=== PATIENT | male | born 1985 ===

== ENCOUNTER 2016-10-27 15:17 | Inpatient (IN) | payer MEDICAID, OTHER ==
[2016-10-27 15:24] VITALS: BMI 35.4
[2016-10-27] MEDS ORDERED: Sodium Chloride 0.9% 2,000 ML IV STA ×3 (15:40→17:56)
[2016-10-27 16:11] LABS: BASO # 0.03 K/mm3 (0.0-2.0); BASO % 0.3 % (0.0-3.0); EOS # 0.2 (0.0-0.7); EOS % 2.5 % (1.5-5.0); GRAN # 5.73 (1.4-6.5); GRAN % 64.3 % (50.0-68.0); HEMOGLOBIN 16.1 gm/dL (14.0-18.0); LYMPH # 2.4 (1.2-3.4); LYMPH % 26.5 % (22.0-35.0); MEAN CELL VOLUME 82.2 fL (80.0-105.0); MEAN CORPUSCULAR HGB CONC 35.2 g/dl (31.0-37.0); MEAN PLATELET VOLUME 11.6 fl (7.0-11.0); MONO # 0.6 (0.1-0.6); MONO % 6.4 % (1.0-6.0); PLATELET COUNT 227 10^3/uL (120.0-450.0); RBC 5.56 10^6/uL (3.5-6.1); WHITE BLOOD COUNT 8.9 10^3/ul (4.5-11.0)
[2016-10-27 16:15] LABS: VENOUS BLOOD GAS BASE EXCESS -3.1 mmol/L (0.0-2.0); VENOUS BLOOD GAS PO2 50 mm/Hg (30-55); VENOUS BLOOD PH 7.32 (7.32-7.43)
--- NOTE | 2016-10-27 16:19 | ED PDOC ---
Arrival/HPI - General Chief Complaint: Dizziness/Lightheaded Time Seen by Provider: 10/27/16 15:39 - History of Present Illness Narrative History of Present Illness (Text): 10/27/16 16:15 31-year-old male, denies any past medical history, presents emergency Department with 3-4 days duration worsening lightheadedness, blurry vision, dry mouth. Patient denies any abdominal pain, denies any nausea or vomiting. Patient states that he is currently being treated with oral antibiotics for diverticulitis, which he states has been resolving. Past Medical History - Provider Review Nursing Documentation Reviewed: Yes - Cardiac Hx Cardiac Disorders: No - Pulmonary Hx Respiratory Disorders: No - Neurological Hx Neurological Disorder: No - HEENT Hx HEENT Disorder: No - Renal Hx Renal Disorder: No - Endocrine/Metabolic Hx Endocrine Disorders: No - Hematological/Oncological Hx Blood Disorders: No - Integumentary Hx Dermatological Disorder: No - Musculoskeletal/Rheumatological Hx Musculoskeletal Disorders: No - Gastrointestinal Hx Diverticulitis: Yes - Genitourinary/Gynecological Hx Genitourinary Disorders: No - Psychiatric Hx Psychophysiologic Disorder: No Hx Substance Use: No - Anesthesia Hx Anesthesia: No Family/Social History Family/Social History: Diabetes Smoking Status: Former Smoker Hx Alcohol Use: No Hx Substance Use: No Allergies/Home Meds Allergies/Adverse Reactions: Allergies No Known Allergies Allergy (Verified 10/27/16 15:23) Home Medications: Home Meds Medication Instructions Recorded Confirmed Ciprofloxacin [Cipro] 500 mg PO DAILY 10/27/16 10/27/16 Physical Exam - Physical Exam Narrative Physical Exam (Text): 10/27/16 16:19 - Review of Systems Constitutional: absent: Fatigue, Weight Change, Fevers Eyes: Normal ENT: denies sore throat, denies tristhmus Respiratory: Normal. absent: SOB, Cough, Sputum Cardiovascular: absent: Chest Pain, Palpitations, Syncope Gastrointestinal: Normal. absent: Abdominal Pain, Diarrhea, Nausea, Vomiting Genitourinary: Normal. absent: Dysuria, Frequency, Hematuria, vaginal bleeding Musculoskeletal: Normal. absent: Arthralgias, Back Pain, Neck Pain Skin: no rashes, no erythema Neurological: absent: Focal Weakness Endocrine: Dry mouth, blurry vision Hemo/Lymphatic: Normal Psychiatric: No suicidal or homicidal ideations Physical exam Patient appears age appropriate in no distress, speaking full sentences without difficulty - Systems Exam Head: Present: Atraumatic, Normocephalic Pupils: Present: PERRL Extroacular Muscles: Present: EOMI Conjunctiva: Present: Normal Mouth: Present: Moist Mucous Membranes Neck: Present: Normal Range of Motion. No: MIDLINE TENDERNESS, Paraspinal Tenderness Respiratory/Chest: Present: Clear to Auscultation, Good Air Exchange. No: Respiratory Distress, Accessory Muscle Use, Tachypneic Cardiovascular: Present: Regular Rate and Rhythm, Normal S1, S2, Peripheal Pulses Present. No: Murmurs Abdomen: Present: Normal Bowel Sounds. No: Tenderness, Distention, Peritoneal Signs, Rebound, Guarding Back: Present: Normal Inspection. No: Midline Tenderness, Paraspinal Tenderness Upper Extremity: Present: Normal Inspection. No: Cyanosis, Edema Lower Extremity: Present: Normal Inspection. No: Edema Neurological: Present: GCS=15, Speech Normal, cranial nerves II through XII fully intact with no cerebellar abnormality, neurosensory fully intact. No focal neurological deficits. Skin: Present: Warm, Dry, Normal Color. No: Rashes Lymphatic: Present: OX3, NI, NC Psychiatric: Present: Alert, Oriented x 3, Normal Insight, Normal Concentration Vital Signs Reviewed: Yes Vital Signs Temp Pulse Resp BP Pulse Ox 10/27/16 16:27 89 18 127/75 98 10/27/16 15:27 98.8 F 99 H 15 129/83 98 Temperature: Afebrile Blood Pressure: Normal Pulse: Tachycardic Respiratory Rate: Normal Appearance: Positive for: Well-Appearing Pain Distress: None Mental Status: Positive for: Alert and Oriented X 3 Finger Stick Blood Glucose: 500 Medical Decision Making ED Course and Treatment: 10/27/16 16:21 31-year-old male with blurry vision, dry mouth, blood sugar over 500 in the emergency department. No acute findings on physical examination. Patient states that he is being treated for diverticulitis at this time. Patient 's abdomen is soft nontender nondistended with positive bowel sounds in all 4 quadrants and no peritoneal signs. Patient states that he has no history of diabetes. Differential diagnosis includes but not limited to: hyperglycemia versus DKA 10/27/16 17:[address] [facility] states to admin a total of 4L NS and bolus of 10U Insulin, and to admit to med/ surg Dr. Garcia in the ED, accepted pt to her service pt aware of and agrees with plan - Lab Interpretations Lab Results: 10/27/16 15:40 10/27/16 15:40 Lab Results 10/27/16 16:35: Urine Color Yellow, Urine Appearance Clear, Urine pH 6.0, Ur Specific [place] 1.010, Urine Protein Negative, Urine Glucose (UA) >=1000, Urine Ketones 40 H, Urine Blood Trace-lysed H, Urine Nitrate Negative, Urine Bilirubin Negative, Urine Urobilinogen 0.2, Ur Leukocyte Esterase Negative, Urine RBC Negative, Urine WBC 0 - 2, Ur Epithelial Cells 0 - 2, Urine Bacteria Neg 10/27/16 15:40: PT 11.3, INR 1.05, APTT 29.5 10/27/16 15:40: pO2 50, VBG pH 7.32, VBG pCO2 45.0, VBG HCO3 23.2, VBG O2 Sat ( Calc) 86.7 H, VBG Base Excess -3.1 L 10/27/16 15:40: Sodium 130 L, Potassium 4.3, Chloride 90 L, Carbon Dioxide 23, Anion Gap 21 H, BUN 17, Creatinine 1.0, Est GFR ( Amer) > 60, Est GFR ( Non-Af Amer) > 60, Random Glucose 592 H*, Calcium 9.1, Total Bilirubin 0.8, AST 39, ALT 84 H, Alkaline Phosphatase 220 H, Total Protein 8.3, Albumin 4.4, Globulin 3.9, Albumin/Globulin Ratio 1.1 10/27/16 15:40: WBC 8.9, RBC 5.56, Hgb 16.1, Hct 45.7, MCV 82.2, MCH 29.0, MCHC 35.2, RDW 13.0, Plt Count 227, MPV 11.6 H, Gran % 64.3, Lymph % (Auto) 26.5, [place] % (Auto) 6.4 H, Eos % (Auto) 2.5, Baso % (Auto) 0.3, Gran # 5.73, Lymph # 2.4, [place] # 0.6, Eos # 0.2, Baso # 0.03 - RAD Interpretation Radiology Orders: 10/27/16 15:40 CHEST PORTABLE [RAD] Stat - Medication Orders Current Medication Orders: Sodium Chloride (Sodium Chloride 0.9%) 2,000 mls @ 1,000 mls/hr IV .Q2H STA Stop: 10/27/16 17:39 Last Admin: 10/27/16 15:59 Dose: 1,000 mls/hr Sodium Chloride (Sodium Chloride 0.9%) 2,000 mls @ 1,000 mls/hr IV .Q2H STA Stop: 10/27/16 19:34 Discontinued Medications Insulin Human Regular (Humulin R) 10 units IV STAT STA Stop: 10/27/16 17:36 Disposition/Present on Arrival - Present on Arrival Any Indicators Present on Arrival: No History of DVT/PE: No History of Uncontrolled Diabetes: No Urinary Catheter: No History of Decub. Ulcer: No History Surgical Site Infection Following: None - Disposition Have Diagnosis and Disposition been Completed?: Yes Diagnosis: Hyperglycemia Disposition: HOSPITALIZED Disposition Time: 17:40 Patient Plan: Admission Condition: FAIR Forms: Dr. Scribbles ([place])
[2016-10-27 16:26] LABS: ALB/GLOB RATIO 1.1 (1.1-1.8); ALBUMIN 4.4 g/dL (3.0-4.8); ALT/SGPT 84 U/L (7-56); AST/SGOT 39 U/L (15-59); BLOOD UREA NITROGEN 17 mg/dL (7-21); CALCIUM 9.1 mg/dL (8.4-10.5); GFR AFRICAN-AMERICAN > 60; GFR NON-AFRICAN AMERICAN > 60; INR 1.05 (0.93-1.08); PARTIAL THROMBOPLASTIN TIME 29.5 Seconds (23.7-30.8); PROTHROMBIN TIME 11.3 Seconds (9.9-11.8)
[2016-10-27] MEDS ORDERED: Insulin Regular 100 UNITS in Sodium Chloride 0.9% 99 ML IV PRN (16:36)
[2016-10-27 16:47] LABS: URINE BILIRUBIN NEGATIVE (NEGATIVE); URINE BLOOD TRACE-LYSED (NEGATIVE); URINE GLUCOSE (UA) >=1000 mg/dL (NEGATIVE); URINE LEUKOCYTE ESTERASE NEGATIVE Leu/uL (NEGATIVE); URINE NITRATE NEGATIVE (NEGATIVE); URINE PROTEIN NEGATIVE mg/dL (<30 mg/dL); URINE UROBILINOGEN 0.2 E.U./dL (<1 E.U./dL)
[2016-10-27 16:54] LABS: URINE APPEARANCE CLEAR (CLEAR); URINE COLOR YELLOW (YELLOW)
[2016-10-27 16:57] LABS: URINE BACTERIA NEG (NEG); URINE EPITHELIAL CELLS 0 - 2 /hpf (0-5); URINE RBC NEGATIVE /hpf (0-2); URINE WBC 0 - 2 /hpf (0-6)
--- NOTE | 2016-10-27 17:28 | RAD ---
HISTORY: cough COMPARISON: No prior. FINDINGS: LUNGS: No active pulmonary disease. PLEURA: No significant pleural effusion identified, no pneumothorax apparent. CARDIOVASCULAR: Normal. OSSEOUS STRUCTURES: No significant abnormalities. VISUALIZED UPPER ABDOMEN: Normal. OTHER FINDINGS: None. IMPRESSION: No active disease.
[2016-10-27] MEDS ORDERED: Insulin Regular 1 UNITS/0.01 ML ML IV STA (17:35)
--- NOTE | 2016-10-27 17:56 | CP.PCM.CON ---
History of Present Illness - History of Present Illness History of Present Illness: 31 y/o M presented to the ER w/ increased thirst, urinary frequency and nausea. he also states that he has been drinking plenty of water and O.J. he has been on Cipro per his PCP for " colitis" ?? he has been dealing with colitis for 9 years and has never been worked up formaly with GI to r/o IBD. he has been having loose mucous stools in the past week which has been further dehydrating him. Review of Systems - Constitutional Constitutional: Fatigue - EENT Eyes: Blurred Vision Nose/Mouth/Throat: Dry Mouth - Cardiovascular Cardiovascular: absent: As Per HPI, Acrocyanosis, Chest Pain, Chest Pain at Rest , Chest Pain with Activity, Claudication, Diaphoresis, Dyspnea, Dyspnea on Exertion, Edema, Irregular Heart Rhythm, Pain Radiating to Arm/Neck/Jaw, Leg Edema, Leg Ulcers, Lightheadedness, Orthopnea, Palpitations, Paroxysmal Nocturnal Dyspnea, Pedal Edema, Radiating Pain, Rapid Heart Rate, Slow Heart Rate, Syncope, Other - Respiratory Respiratory: absent: As Per HPI, Cough, Dyspnea, Hemoptysis, Dyspnea on Exertion , Wheezing, Snoring, Stridor, Pain on Inspiration, Chest Congestion, Excessive Mucous Production, Change in Mucous Color, Pain with Coughing, Other - Gastrointestinal Gastrointestinal: Diarrhea - Genitourinary Genitourinary: Urinary Frequency - Integumentary Integumentary: absent: As Per HPI, Acne, Alopecia, Bleeding Lesions, Change in Hair, Change in Nails, Change in Pigmentation, Changing Lesions, Dry Skin, Erythema, Furuncle, Hirsutism, Lesions, New Lesions, Non-Healing Lesions, Photosensitivity, Pruritus, Rash, Skin Pain, Skin Ulcer, Sores, Striae, Swelling , Unusual Bruising, Wounds, Jaundice, Other - Neurological Neurological: absent: As Per HPI, Abnormal Gait, Abnormal Hearing, Abnormal Movements, Abnormal Speech, Behavioral Changes, Burning Sensations, Confusion, Convulsions, Disequilibrium, Dizziness, Numbness, Focal Weakness, Frequent Falls , Headaches, Lack of Coordination, Loss of Vision, Memory Loss, Paresthesias, Radicular Pain, Restless Legs, Sensory Deficit, Syncope, Tingling, Tremor, Vertigo, Weakness, Other Visual Disturbances, Other Past Patient History - Past Social History Smoking Status: Former Smoker - CARDIAC Hx Cardiac Disorders: No - PULMONARY Hx Respiratory Disorders: No - NEUROLOGICAL Hx Neurological Disorder: No - HEENT Hx HEENT Problems: No - RENAL Hx Chronic Kidney Disease: No - ENDOCRINE/METABOLIC Hx Endocrine Disorders: No - HEMATOLOGICAL/ONCOLOGICAL Hx Blood Disorders: No - INTEGUMENTARY Hx Dermatological Problems: No - MUSCULOSKELETAL/RHEUMATOLOGICAL Hx Musculoskeletal Disorders: No - GASTROINTESTINAL Hx Diverticulitis: Yes - GENITOURINARY/GYNECOLOGICAL Hx Genitourinary Disorders: No - PSYCHIATRIC Hx Psychophysiologic Disorder: No Hx Substance Use: No - SURGICAL HISTORY Hx Surgeries: No - ANESTHESIA Hx Anesthesia: No Meds Allergies/Adverse Reactions: Allergies Allergy/AdvReac Type Severity Reaction Status Date / Time No Known Allergies Allergy Verified 10/27/16 15:23 - Medications Medications: Current Medications Sodium Chloride (Sodium Chloride 0.9%) 2,000 mls @ 1,000 mls/hr IV .Q2H STA Stop: 10/27/16 19:34 Sodium Chloride (Sodium Chloride 0.9%) 1,000 mls @ 100 mls/hr IV .Q10H [facility] Insulin Human Regular (Humulin R Med) 0 units SC ACHS [place] PRN Reason: Protocol Ondansetron HCl (Zofran Inj) 4 mg IVP Q4H PRN PRN Reason: Nausea/Vomiting Pantoprazole Sodium (Protonix Inj) 40 mg IVP DAILY [facility] Physical Exam - Head Exam Head Exam: ATRAUMATIC, NORMAL INSPECTION - Eye Exam Eye Exam: EOMI, Normal appearance Pupil Exam: NORMAL ACCOMODATION - ENT Exam ENT Exam: Mucous Membranes Dry, Normal Exam - Neck Exam Neck exam: Positive for: Normal Inspection - Respiratory Exam Respiratory Exam: Clear to Auscultation Bilateral, NORMAL BREATHING PATTERN - Cardiovascular Exam Cardiovascular Exam: REGULAR RHYTHM - GI/Abdominal Exam GI & Abdominal Exam: Normal Bowel Sounds, Soft - Rectal Exam Rectal Exam: NORMAL INSPECTION - Extremities Exam Extremities exam: Positive for: normal inspection - Neurological Exam Neurological exam: Normal Gait, Oriented x3 Results - Vital Signs Recent Vital Signs: Last Vital Signs Temp 98.8 F 10/27/16 15:27 Pulse 89 10/27/16 16:27 Resp 18 10/27/16 16:27 BP 127/75 10/27/16 16:27 Pulse Ox 98 10/27/16 16:27 - Labs Result Diagrams: 10/27/16 15:40 10/27/16 15:40 Labs: Laboratory Results - last 24 hr 10/27/16 10/27/16 10/27/16 15:40 15:40 15:40 WBC 8.9 RBC 5.56 Hgb 16.1 Hct 45.7 MCV 82.2 MCH 29.0 MCHC 35.2 RDW 13.0 Plt Count 227 MPV 11.6 H Gran % 64.3 Lymph % (Auto) 26.5 [place] % (Auto) 6.4 H Eos % (Auto) 2.5 Baso % (Auto) 0.3 Gran # 5.73 Lymph # 2.4 [place] # 0.6 Eos # 0.2 Baso # 0.03 PT INR APTT pO2 50 VBG pH 7.32 VBG pCO2 45.0 VBG HCO3 23.2 VBG O2 Sat (Calc) 86.7 H VBG Base Excess -3.1 L Sodium 130 L Potassium 4.3 Chloride 90 L Carbon Dioxide 23 Anion Gap 21 H BUN 17 Creatinine 1.0 Est GFR ( Amer) > 60 Est GFR (Non-Af Amer) > 60 Random Glucose 592 H* Calcium 9.1 Total Bilirubin 0.8 AST 39 ALT 84 H Alkaline Phosphatase 220 H Total Protein 8.3 Albumin 4.4 Globulin 3.9 Albumin/Globulin Ratio 1.1 Urine Color Urine Appearance Urine pH Ur Specific [place] Urine Protein Urine Glucose (UA) Urine Ketones Urine Blood Urine Nitrate Urine Bilirubin Urine Urobilinogen Ur Leukocyte Esterase Urine RBC Urine WBC Ur Epithelial Cells Urine Bacteria 10/27/16 10/27/16 15:40 16:35 WBC RBC Hgb Hct MCV MCH MCHC RDW Plt Count MPV Gran % Lymph % (Auto) [place] % (Auto) Eos % (Auto) Baso % (Auto) Gran # Lymph # [place] # Eos # Baso # PT 11.3 INR 1.05 APTT 29.5 pO2 VBG pH VBG pCO2 VBG HCO3 VBG O2 Sat (Calc) VBG Base Excess Sodium Potassium Chloride Carbon Dioxide Anion Gap BUN Creatinine Est GFR ( Amer) Est GFR (Non-Af Amer) Random Glucose Calcium Total Bilirubin AST ALT Alkaline Phosphatase Total Protein Albumin Globulin Albumin/Globulin Ratio Urine Color Yellow Urine Appearance Clear Urine pH 6.0 Ur Specific [place] 1.010 Urine Protein Negative Urine Glucose (UA) >=1000 Urine Ketones 40 H Urine Blood Trace-lysed H Urine Nitrate Negative Urine Bilirubin Negative Urine Urobilinogen 0.2 Ur Leukocyte Esterase Negative Urine RBC Negative Urine WBC 0 - 2 Ur Epithelial Cells 0 - 2 Urine Bacteria Neg Assessment & Plan - Assessment and Plan (Free Text) Assessment: 31 y/o M w/ HHNK w/ Hypochloremia Recent colitis which needs further work up w/ GI to r/o IBD etc. Will need aggresive fluid hydration w/ N.S x 4 -6L. NPO 10 units Insulin to be given. Bicarbonate 23 currently. AG falsely elevated. Will need DM formal work up. dvt p No icu indication at this point. Please call back if clinical state changes. cc time 55 min
[2016-10-27] MEDS ORDERED: Insulin Detemir 100 units/ml Vial (Levemir) SC SCH (18:00)
--- NOTE | 2016-10-27 18:04 | CP.PCM.HP ---
History of Present Illness - History of Present Illness History of Present Illness: Increased thirst, blurry vision and increased urination. Patient seen and examined in ER bed 13. Patient's mother by the bedside. patient is alert, awake and oriented. patient is complaining of generalized weakness, increased thirst and increased urination for the past 3 days. The patient has been drinking lots of water and juices to compensate for his thirst. Patient also complained of blurry vision this morning. Denies any fevers, chills. Denies any chest pain, shortness of breath. denies any abdominal pain, nausea, vomiting. Denies any diarrhea. Patient with a history of diverticulitis diagnosed at the age of 22. Patient had about 4 admission since then. Last admission was about 4 years ago at [facility] [place]. Patient usually gets treated with IV anti-biotics. Currently patient is taking po ciprofloxacin for an episode of left lower quadrant abdominal pain started a week ago. Patient follows up with PMD Dr.LIM harman. Past surgical history; None Medications; Ciprofloxacin Allergies; None Social history; Denies history of smoking Denies alcohol abuse denies drug abuse Family history; Mother with history of diverticulitis Present on Admission - Present on Admission Any Indicators Present on Admission: No History of DVT/PE: No History of Uncontrolled Diabetes: No Urinary Catheter: No Decubitus Ulcer Present: No Review of Systems - Constitutional Constitutional: absent: Chills - EENT Eyes: Blurred Vision Nose/Mouth/Throat: absent: Nasal Congestion - Cardiovascular Cardiovascular: absent: Chest Pain - Respiratory Respiratory: absent: Cough, Dyspnea - Gastrointestinal Gastrointestinal: absent: Abdominal Pain, Bloating Additional comments: left lower quadrant discomfort - Musculoskeletal Musculoskeletal: absent: Abnormal Gait - Neurological Neurological: absent: Abnormal Gait - Psychiatric Psychiatric: absent: Anxiety, Depression - Hematologic/Lymphatic Hematologic: absent: Easy Bleeding, Easy Bruising Past Patient History - Past Social History Smoking Status: Former Smoker - CARDIAC Hx Cardiac Disorders: No - PULMONARY Hx Respiratory Disorders: No - NEUROLOGICAL Hx Neurological Disorder: No - HEENT Hx HEENT Problems: No - RENAL Hx Chronic Kidney Disease: No - ENDOCRINE/METABOLIC Hx Endocrine Disorders: No - HEMATOLOGICAL/ONCOLOGICAL Hx Blood Disorders: No - INTEGUMENTARY Hx Dermatological Problems: No - MUSCULOSKELETAL/RHEUMATOLOGICAL Hx Musculoskeletal Disorders: No - GASTROINTESTINAL Hx Diverticulitis: Yes - GENITOURINARY/GYNECOLOGICAL Hx Genitourinary Disorders: No - PSYCHIATRIC Hx Psychophysiologic Disorder: No Hx Substance Use: No - SURGICAL HISTORY Hx Surgeries: No - ANESTHESIA Hx Anesthesia: No Meds Allergies/Adverse Reactions: Allergies Allergy/AdvReac Type Severity Reaction Status Date / Time No Known Allergies Allergy Verified 10/27/16 15:23 Physical Exam - Constitutional Appears: Well, Non-toxic - Head Exam Head Exam: NORMAL INSPECTION - Eye Exam Eye Exam: Normal appearance - ENT Exam ENT Exam: Mucous Membranes Dry - Respiratory Exam Respiratory Exam: NORMAL BREATHING PATTERN - Cardiovascular Exam Cardiovascular Exam: REGULAR RHYTHM - GI/Abdominal Exam GI & Abdominal Exam: Normal Bowel Sounds, Soft. absent: Rebound, Rigid, Tenderness - Back Exam Back exam: absent: CVA tenderness (L), CVA tenderness (R) - Neurological Exam Neurological exam: Alert, Oriented x3 - Psychiatric Exam Psychiatric exam: Normal Affect - Skin Skin Exam: Normal Color Results - Vital Signs Recent Vital Signs: Last Vital Signs Temp 98.8 F 10/27/16 15:27 Pulse 89 10/27/16 16:27 Resp 18 10/27/16 16:27 BP 127/75 10/27/16 16:27 Pulse Ox 98 10/27/16 16:27 - Labs Result Diagrams: 10/28/16 07:00 10/28/16 07:00 Labs: Laboratory Results - last 24 hr 10/27/16 10/27/16 10/27/16 15:40 15:40 15:40 WBC 8.9 RBC 5.56 Hgb 16.1 Hct 45.7 MCV 82.2 MCH 29.0 MCHC 35.2 RDW 13.0 Plt Count 227 MPV 11.6 H Gran % 64.3 Lymph % (Auto) 26.5 [place] % (Auto) 6.4 H Eos % (Auto) 2.5 Baso % (Auto) 0.3 Gran # 5.73 Lymph # 2.4 [place] # 0.6 Eos # 0.2 Baso # 0.03 PT INR APTT pO2 50 VBG pH 7.32 VBG pCO2 45.0 VBG HCO3 23.2 VBG O2 Sat (Calc) 86.7 H VBG Base Excess -3.1 L Sodium 130 L Potassium 4.3 Chloride 90 L Carbon Dioxide 23 Anion Gap 21 H BUN 17 Creatinine 1.0 Est GFR ( Amer) > 60 Est GFR (Non-Af Amer) > 60 Random Glucose 592 H* Calcium 9.1 Total Bilirubin 0.8 AST 39 ALT 84 H Alkaline Phosphatase 220 H Total Protein 8.3 Albumin 4.4 Globulin 3.9 Albumin/Globulin Ratio 1.1 Urine Color Urine Appearance Urine pH Ur Specific [place] Urine Protein Urine Glucose (UA) Urine Ketones Urine Blood Urine Nitrate Urine Bilirubin Urine Urobilinogen Ur Leukocyte Esterase Urine RBC Urine WBC Ur Epithelial Cells Urine Bacteria 10/27/16 10/27/16 15:40 16:35 WBC RBC Hgb Hct MCV MCH MCHC RDW Plt Count MPV Gran % Lymph % (Auto) [place] % (Auto) Eos % (Auto) Baso % (Auto) Gran # Lymph # [place] # Eos # Baso # PT 11.3 INR 1.05 APTT 29.5 pO2 VBG pH VBG pCO2 VBG HCO3 VBG O2 Sat (Calc) VBG Base Excess Sodium Potassium Chloride Carbon Dioxide Anion Gap BUN Creatinine Est GFR ( Amer) Est GFR (Non-Af Amer) Random Glucose Calcium Total Bilirubin AST ALT Alkaline Phosphatase Total Protein Albumin Globulin Albumin/Globulin Ratio Urine Color Yellow Urine Appearance Clear Urine pH 6.0 Ur Specific [place] 1.010 Urine Protein Negative Urine Glucose (UA) >=1000 Urine Ketones 40 H Urine Blood Trace-lysed H Urine Nitrate Negative Urine Bilirubin Negative Urine Urobilinogen 0.2 Ur Leukocyte Esterase Negative Urine RBC Negative Urine WBC 0 - 2 Ur Epithelial Cells 0 - 2 Urine Bacteria Neg Assessment & Plan - Assessment and Plan (Free Text) Assessment: 1.Patient is a 11-year-old male admitted with newly diagnosed diabetes mellitus. continue IV fluid bolus. IV insulin given. Monitor fingerstick closely. Started on metformin and Levemir. ICU evaluation appreciated. Continue to monitor the patient closely.endocrinology evaluation requested. 2. History of diverticulitis; GI evaluation requested. CT abdomen and pelvis ordered. 3.GI prophylaxis with Protonix. 4. Dietary education/diabetic teaching requested. The diagnosis, treatment plan discussed with patient and patient's mother in detail. Upon discharge the patient will follow-up with PMD Dr. Epifanio Harman.
[2016-10-27] MEDS: Sodium Chloride 0.9% 1,000 ML IV SCH (20:00)
[2016-10-27] MEDS ORDERED: Insulin Reg-MEDIUM-Coverage SC SCH (22:00)
--- NOTE | 2016-10-28 02:20 | CON ---
ENDOCRINOLOGY CONSULT LOCATION: Room 564, [facility]. HISTORY OF PRESENT ILLNESS: This is a 31-year-old male with longstanding history of diverticulitis, currently on oral antibiotics for the same and admits to progressively worsening polyuria, nocturia, polydipsia and about a 5-pound or so weight loss and has been evaluated to have recent onset of uncontrolled type 2 insulin requiring diabetes and he is now being referred for diabetic evaluation and management. PAST MEDICAL HISTORY: History of diverticulitis diagnosed since age 22 and has had multiple admissions at the [facility] for exacerbation of the same. FAMILY HISTORY: Possible hypertension and diabetes. SOCIAL HISTORY: The patient has a supportive family. No known substance use. REVIEW OF SYSTEMS: As mentioned above, admits to generalized body weakness with episodic bouts of dizziness and lightheadedness, worsened the last few days prior to admission, also admits to generalized body weakness, easy fatigability and tiredness and suboptimal energy level. No chest pains or palpitations or PNDs. His oral intake has been variable and suboptimal with nausea, dyspepsia and vague lower abdominal pain. Also admitted to marked polyuria, nocturia, polydipsia and has been consuming gallons of water and juices in the last few days prior to admission. PHYSICAL EXAMINATION: GENERAL: This is overweight male in no apparent distress. VITAL SIGNS: Blood pressure of 140/80; pulse of 70 beats per minute, regular; temperature 98; respirations 20; height is 5 feet 9 inch, weight is 240 pounds. HEENT: Head is normocephalic. Eyes, anicteric with pink conjunctivae. Funduscopy not possible at this time. Ears, nose, and throat, otherwise normal. NECK: Supple. Thyroid gland is normal in size. No carotid bruits. No cervical adenopathy. CARDIOPULMONARY: Has an adynamic precordium. S1 and S2 is rapid and regular. LUNGS: Clear to auscultation. ABDOMEN: Flat and soft with positive bowel sounds. EXTREMITIES: No peripheral edema. Pulses are +2 bilaterally. LABORATORY DATA: Chemistries; BUN is 17, sodium 130, potassium 4.3, chloride 90, CO2 is 23, glucose 592, creatinine 1.0, alkaline phosphatase is 220. ASSESSMENT: This is a 31-year-old male with uncontrolled and decompensated type 2 insulin requiring diabetes of recent onset and diagnosis with concomitant spurious hyponatremia and prerenal azotemia, expected from the increased osmotic diuresis thereof. PLAN OF MANAGEMENT: Discussed with the patient that we will modify hypoglycemia and we will switch him over to a low dose using regular insulin as ordered. We will continue the metformin given as 850 mg b.i.d and also add Amaryl 2 mg p.o. b.i.d. before meals as ordered. We will continue the vigorous IV hydration as ordered and obtain serial chemistries and supplement accordingly as needed. With this kind of recent onset and concomitant overweight condition, we would expect a big element of increased insulin resistance and should actually do very well on combination of oral hypoglycemic drug therapy as given. He needs basal insulin just to cover the increased hepatic gluconeogenesis overnight especially with the recent diagnosis of type 2 diabetes. Overtime, the patient may actually respond very well in combination of oral hypoglycemic therapy. We can eventually discontinue the basal insulin therapy at this time. However, we will continue this basal insulin to reduce the gluco toxicity as expected with recent onset of untreated and undiagnosed type 2 diabetes. We will initiate diabetic education and instructions especially with weight loss efforts, unhealthy food choices accordingly. We will follow with you. Susan Marcum MD
[2016-10-28] MEDS: Insulin Reg-LOW-Coverage SC SCH ×4 (07:53→22:02)
[2016-10-28 07:54] VITALS: O2SAT 99
[2016-10-28 08:03] LABS: HEMOGLOBIN 13.7 gm/dL (14.0-18.0); MEAN CELL VOLUME 82.1 fL (80.0-105.0); MEAN CORPUSCULAR HEMOGLOBIN 28.8 pg (25.0-35.0); MEAN CORPUSCULAR HGB CONC 35.1 g/dl (31.0-37.0); MEAN PLATELET VOLUME 11.4 fl (7.0-11.0); RBC 4.75 10^6/uL (3.5-6.1); RED CELL DISTRIBUTION WIDTH 13.2 % (11.5-14.5); WHITE BLOOD COUNT 6.7 10^3/ul (4.5-11.0)
[2016-10-28 08:15] LABS: BLOOD UREA NITROGEN 9 mg/dL (7-21); CALCIUM 7.9 mg/dL (8.4-10.5); GFR AFRICAN-AMERICAN > 60; GFR NON-AFRICAN AMERICAN > 60; HDL CHOLESTEROL 24 mg/dL (29-60)
[2016-10-28 08:25] LABS: LDL CHOLESTEROL 79 mg/dL (0-129)
[2016-10-28] MEDS ORDERED: Barium Sulfate Susp 2.1% w/v, 2.0% w/w 450 mL Bottle PO ONE (09:06)
--- NOTE | 2016-10-28 09:39 | CARD ---
APPROVED REPORT EKG Measurement Heart [id number] <Conclusion> Sinus rhythm with short NE Otherwise normal ECG
--- NOTE | 2016-10-28 11:14 | CP.PCM.CON ---
<Elroy Corcoran - Last Filed: 10/28/16 11:09> History of Present Illness - History of Present Illness History of Present Illness: PGY5 GI Fellow Consult Note Patient is a 31yo male with PMHx significant for diverticulitis with abscess formation who presented to the ED with increased thirst and frequent urination. The patient has since been newly diagnosed with diabetes mellitus and is receiving care for this. Our service was consulted for his frequent bouts of diverticulitis. He was first diagnosed 9 years ago when he developed LLQ abdominal pain and presented to the ER. A CT at that time revealed diverticulitis with abscess formation. According to the patient he was treated with antibiotics and discharged. 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 His more recent episode began 7 days [employer]ASH[employer] when he again had LLQ pain and saw a PCP who gave him PO Cipro. Currently, pain is minimal and he denies any diarrhea, fever, chills, nausea, vomiting, weight loss. He denies any history of rectal bleeding/melena, joint pain, vision changes. PMHx: See HPI PSHx: Denies FHx: Mother - diverticulosis Social: Denies tobacco, EtOH or illicit drug use Endo: No prior endoscopic evaluations 12 system ROS performed and negative except where stated above. Past Patient History - Past Social History Smoking Status: Former Smoker - CARDIAC Hx Cardiac Disorders: No - PULMONARY Hx Respiratory Disorders: No - NEUROLOGICAL Hx Neurological Disorder: No - HEENT Hx HEENT Problems: No - RENAL Hx Chronic Kidney Disease: No - ENDOCRINE/METABOLIC Hx Endocrine Disorders: No - HEMATOLOGICAL/ONCOLOGICAL Hx Blood Disorders: No - INTEGUMENTARY Hx Dermatological Problems: No - MUSCULOSKELETAL/RHEUMATOLOGICAL Hx Musculoskeletal Disorders: No Hx Falls: No - GASTROINTESTINAL Hx Gastrointestinal Disorders: Yes Hx Diverticulitis: Yes - GENITOURINARY/GYNECOLOGICAL Hx Genitourinary Disorders: No - PSYCHIATRIC Hx Psychophysiologic Disorder: No - SURGICAL HISTORY Hx Surgeries: No - ANESTHESIA Hx Anesthesia: No Meds Allergies/Adverse Reactions: Allergies Allergy/AdvReac Type Severity Reaction Status Date / Time No Known Allergies Allergy Verified 10/27/16 15:23 - Medications Medications: Current Medications Glimepiride (Amaryl) 2 mg PO ACBD [facility], [facility] Last Admin: 10/28/16 07:52 Dose: 2 mg Sodium Chloride (Sodium Chloride 0.9%) 1,000 mls @ 100 mls/hr IV .Q10H [facility], [facility]1983 Last Admin: 10/27/16 20:00 Dose: 100 mls/hr Insulin Human NPH (Humulin N) 12 units SC HS [facility], [facility]1983 Insulin Human Regular (Humulin R Low) 0 units SC ACHS PAULINA PRN Reason: Protocol Last Admin: 10/28/16 07:53 Dose: 3 units Metformin HCl (Glucophage) 850 mg PO BID [facility]1983 Last Admin: 10/27/16 19:26 Dose: Not Given Ondansetron HCl (Zofran Inj) 4 mg IVP Q4H PRN PRN Reason: Nausea/Vomiting Pantoprazole Sodium (Protonix Inj) 40 mg IVP DAILY [facility], [facility] Last Admin: 10/27/16 18:48 Dose: 40 mg Physical Exam - Constitutional Appears: Non-toxic, No Acute Distress - Eye Exam Eye Exam: EOMI, PERRL - ENT Exam ENT Exam: Mucous Membranes Moist - Respiratory Exam Respiratory Exam: Clear to Auscultation Bilateral. absent: Rales, Rhonchi, Wheezes - Cardiovascular Exam Cardiovascular Exam: RRR, +S1, +S2 - GI/Abdominal Exam GI & Abdominal Exam: Normal Bowel Sounds, Soft. absent: Distended, Firm, Guarding, Organomegaly, Rigid, Tenderness - Extremities Exam Extremities exam: Positive for: normal inspection. Negative for: pedal edema - Neurological Exam Neurological exam: Alert, Oriented x3 - Psychiatric Exam Psychiatric exam: Normal Affect, Normal Mood - Skin Skin Exam: Dry, Warm Results - Vital Signs Recent Vital Signs: Last Vital Signs Temp 97.8 F 10/28/16 07:53 Pulse 70 10/28/16 07:53 Resp 20 10/28/16 07:53 BP 121/79 10/28/16 07:53 Pulse Ox 99 10/28/16 07:53 - Labs Result Diagrams: 10/28/16 07:00 10/28/16 07:00 Labs: Laboratory Results - last 24 hr 10/27/16 10/28/16 10/28/16 21:45 07:00 07:00 WBC 6.7 D RBC 4.75 Hgb 13.7 L Hct 39.0 L MCV 82.1 MCH 28.8 MCHC 35.1 RDW 13.2 Plt Count 202 MPV 11.4 H Sodium 135 Potassium 4.0 Chloride 105 Carbon Dioxide 21 Anion Gap 13 BUN 9 Creatinine 0.6 Est GFR ( Amer) > 60 Est GFR (Non-Af Amer) > 60 POC Glucose (mg/dL) 250 H Random Glucose 263 H Calcium 7.9 L Triglycerides 125 Cholesterol 115 L LDL Cholesterol Direct 79 HDL Cholesterol 24 L TSH 3rd Generation 10/28/16 10/28/16 07:00 07:23 WBC RBC Hgb Hct MCV MCH MCHC RDW Plt Count MPV Sodium Potassium Chloride Carbon Dioxide Anion Gap BUN Creatinine Est GFR ( Amer) Est GFR (Non-Af Amer) POC Glucose (mg/dL) 262 H Random Glucose Calcium Triglycerides Cholesterol LDL Cholesterol Direct HDL Cholesterol TSH 3rd Generation 0.88 Assessment & Plan - Assessment and Plan (Free Text) Assessment: Patient is a 31yo male with PMHx significant for diverticulitis with abscess formation who presented to the ED with increased thirst and frequent urination. Our service was consulted for his frequent bouts of diverticulitis. -Newly diagnosed diabetes mellitus -Recurrent diverticulitis with history of abscess formation Plan: -Patient would benefit from outpatient follow up and work up -Work up would include CT scan A/P with PO/IV contrast once this episode resolves as well as EGD/Colonoscopy -Continue Cipro PO BID to complete course of therapy prescribed this past Saturday by outside provider -Supportive care -No further recommendations while inpatient -Pt can follow up with [facility], [place] or [facility] - Date & Time Date: 10/28/16 Time: 07:30 <Juan Prince - Last Filed: 10/28/16 13:44> Meds - Medications Medications: Current Medications Glimepiride (Amaryl) 2 mg PO ACBD [facility], [facility]1983 Last Admin: 10/28/16 07:52 Dose: 2 mg Sodium Chloride (Sodium Chloride 0.9%) 1,000 mls @ 100 mls/hr IV .Q10H PAULINA Last Admin: 10/27/16 20:00 Dose: 100 mls/hr Insulin Human NPH (Humulin N) 12 units SC HS PAULINA Insulin Human Regular (Humulin R Low) 0 units SC ACHS PAULINA PRN Reason: Protocol Last Admin: 10/28/16 12:49 Dose: Not Given Metformin HCl (Glucophage) 850 mg PO BID [facility], [facility]1983 Last Admin: 10/28/16 10:10 Dose: 850 mg Ondansetron HCl (Zofran Inj) 4 mg IVP Q4H PRN PRN Reason: Nausea/Vomiting Pantoprazole Sodium (Protonix Inj) 40 mg IVP DAILY PAULINA Last Admin: 10/28/16 10:10 Dose: 40 mg Results - Vital Signs Recent Vital Signs: Last Vital Signs Temp 97.8 F 10/28/16 07:53 Pulse 70 10/28/16 07:53 Resp 20 10/28/16 07:53 BP 121/79 10/28/16 07:53 Pulse Ox 99 10/28/16 07:53 - Labs Result Diagrams: 10/28/16 07:00 10/28/16 07:00 Labs: Laboratory Results - last 24 hr 10/27/16 10/28/16 10/28/16 21:45 07:00 07:00 WBC 6.7 D RBC 4.75 Hgb 13.7 L Hct 39.0 L MCV 82.1 MCH 28.8 MCHC 35.1 RDW 13.2 Plt Count 202 MPV 11.4 H Sodium 135 Potassium 4.0 Chloride 105 Carbon Dioxide 21 Anion Gap 13 BUN 9 Creatinine 0.6 Est GFR ( Amer) > 60 Est GFR (Non-Af Amer) > 60 POC Glucose (mg/dL) 250 H Random Glucose 263 H Calcium 7.9 L Triglycerides 125 Cholesterol 115 L LDL Cholesterol Direct 79 HDL Cholesterol 24 L TSH 3rd Generation 10/28/16 10/28/16 10/28/16 07:00 07:23 11:04 WBC RBC Hgb Hct MCV MCH MCHC RDW Plt Count MPV Sodium Potassium Chloride Carbon Dioxide Anion Gap BUN Creatinine Est GFR ( Amer) Est GFR (Non-Af Amer) POC Glucose (mg/dL) 262 H 241 H Random Glucose Calcium Triglycerides Cholesterol LDL Cholesterol Direct HDL Cholesterol TSH 3rd Generation 0.88 Attending/Attestation - Attestation I have personally seen and examined this patient.: Yes I have fully participated in the care of the patient.: Yes I have reviewed all pertinent clinical information: Yes Notes (Text): 10/28/16 13:43 31 year old male with h/o diverticulitis admitted with new onset dm 1. History of diverticulitis Plan: -already started on abx prior to admission -recommend ct abdomen after completion of abx therapy as he states he has h/o abscess -recommend outpatient colonoscopy -diet as tolerated -ok for discharge from gi standpoint
--- NOTE | 2016-10-28 13:23 | CP.PCM.PN ---
<Everett Berkowitz - Last Filed: 10/28/16 13:14> Subjective - Date & Time of Evaluation Date of Evaluation: 10/28/16 Time of Evaluation: 13:15 - Subjective Subjective: Patient is seen and examined on [facility] this AM. No acute events overnight. Patient' s bg this AM was 262 on glipizide, metformin and insulin. Patient reports his abdominal pain is improved from admission. Patient is able to tolerate diet. Patient was evaluated by manager strategic marketing and gastroenterology and advised for outpatient follow up. He denies chest pain, shortness of breath, diarrhea, nausea, vomiting, fever. Objective - Vital Signs/Intake and Output Vital Signs (last 24 hours): Temp Pulse Resp BP Pulse Ox 97.8 F 70 20 121/79 99 10/28/16 07:53 10/28/16 07:53 10/28/16 07:53 10/28/16 07:53 10/28/16 07:53 Intake and Output: 10/28/16 10/28/16 06:59 18:59 Intake Total 240 Balance 240 - Medications Medications: Current Medications Glimepiride (Amaryl) 2 mg PO ACBD [facility] Last Admin: 10/28/16 07:52 Dose: 2 mg Sodium Chloride (Sodium Chloride 0.9%) 1,000 mls @ 100 mls/hr IV .Q10H [facility] Last Admin: 10/27/16 20:00 Dose: 100 mls/hr Insulin Human NPH (Humulin N) 12 units SC HS PAULINA Insulin Human Regular (Humulin R Low) 0 units SC ACHS PAULINA PRN Reason: Protocol Last Admin: 10/28/16 12:49 Dose: Not Given Metformin HCl (Glucophage) 850 mg PO BID [facility] Last Admin: 10/28/16 10:10 Dose: 850 mg Ondansetron HCl (Zofran Inj) 4 mg IVP Q4H PRN PRN Reason: Nausea/Vomiting Pantoprazole Sodium (Protonix Inj) 40 mg IVP DAILY [facility] Last Admin: 10/28/16 10:10 Dose: 40 mg - Labs Labs: 10/28/16 07:00 10/28/16 07:00 PT 11.3 Seconds (9.9-11.8) 10/27/16 15:40 INR 1.05 (0.93-1.08) 10/27/16 15:40 APTT 29.5 Seconds (23.7-30.8) 10/27/16 15:40 - Head Exam Head Exam: ATRAUMATIC, NORMAL INSPECTION, NORMOCEPHALIC - Eye Exam Eye Exam: EOMI, PERRL - ENT Exam ENT Exam: Mucous Membranes Moist, Normal Exam - Neck Exam Neck Exam: Full ROM - Respiratory Exam Respiratory Exam: Clear to Ausculation Bilateral, NORMAL BREATHING PATTERN - Cardiovascular Exam Cardiovascular Exam: REGULAR RHYTHM, +S1, +S2 - GI/Abdominal Exam GI & Abdominal Exam: Soft, Normal Bowel Sounds. absent: Distended, Tenderness - Extremities Exam Extremities Exam: Full ROM, Normal Capillary Refill, Normal Inspection - Neurological Exam Neurological Exam: Alert, Awake, CN II-XII Intact, Oriented x3 Neuro motor strength exam: Left Upper Extremity: 5, Right Upper Extremity: 5, Left Lower Extremity: 5, Right Lower Extremity: 5 - Psychiatric Exam Psychiatric exam: Normal Affect, Normal Mood - Skin Skin Exam: Dry, Intact, Normal Color Assessment and Plan - Assessment and Plan (Free Text) Assessment: Patient is a 31 year old male with past medical history of diverticulitis presented to hospital complaining of polyuria, polydypsia and abdominal pain. Patient is newly diagnosed with diabetes mellitus and has been evaluated by gastroenterology and endocrinology Plan: 1. Newly diagnosed DM - IVF for rehydration - Diabetic education and Diet education - Glipizide, metformin, levimir for bg control - Scale Attendant consulted, Dr. Susan Marcum 2. Hx of Diverticulitis - CT scan showing - GI consulted, Dr. Elroy Corcoran - GI rec outpatient follow up with CT scan A/P with PO/IV contrast 3. GI ppx - Protonix Dispo: Continue to monitor pt overnight with tentative discharge tomorrow with follow up with PMD Dr. Epifanio Almanza <Titi Garcia - Last Filed: 10/28/16 17:19> Objective - Vital Signs/Intake and Output Vital Signs (last 24 hours): Temp Pulse Resp BP Pulse Ox 98.8 F 81 18 133/82 99 10/28/16 15:57 10/28/16 15:57 10/28/16 15:57 10/28/16 15:57 10/28/16 15:57 Intake and Output: 10/28/16 10/28/16 06:59 18:59 Intake Total 240 240 Balance 240 240 - Medications Medications: Current Medications Ciprofloxacin (Cipro) 500 mg PO Q12 PAULINA PRN Reason: Protocol Stop: 10/29/16 17:16 Glimepiride (Amaryl) 4 mg PO ACBD [facility] Last Admin: 10/28/16 17:00 Dose: 4 mg Sodium Chloride (Sodium Chloride 0.9%) 1,000 mls @ 100 mls/hr IV .Q10H [facility] Last Admin: 10/28/16 16:58 Dose: 100 mls/hr Insulin Human NPH (Humulin N) 20 units SC HS PAULINA Insulin Human Regular (Humulin R Low) 0 units SC ACHS PAULINA PRN Reason: Protocol Last Admin: 10/28/16 16:11 Dose: Not Given Metformin HCl (Glucophage) 850 mg PO BID [facility] Last Admin: 10/28/16 17:01 Dose: 850 mg Ondansetron HCl (Zofran Inj) 4 mg IVP Q4H PRN PRN Reason: Nausea/Vomiting Pantoprazole Sodium (Protonix Inj) 40 mg IVP DAILY [facility] Last Admin: 10/28/16 10:10 Dose: 40 mg - Labs Labs: 10/28/16 07:00 10/28/16 07:00 PT 11.3 Seconds (9.9-11.8) 10/27/16 15:40 INR 1.05 (0.93-1.08) 10/27/16 15:40 APTT 29.5 Seconds (23.7-30.8) 10/27/16 15:40 Attending/Attestation - Attestation I have personally seen and examined this patient.: Yes I have fully participated in the care of the patient.: Yes I have reviewed all pertinent clinical information, including history, physical exam and plan: Yes Notes (Text): 10/28/16 17:17 attending note; Patient seen and examined with the resident. 1.Patient is a 11-year-old male admitted with newly diagnosed diabetes mellitus. Currently on metformin, Amaryl and NPH. endocrinology evaluation appreciated 2. History of diverticulitis; GI evaluation appreciated. CT abdomen and pelvis showed diverticulitis and mural thickening. Needs outpatient GI workup. 3.GI prophylaxis with Protonix. 4. Dietary education/diabetic teaching in progress. Possible discharge home tomorrow. Upon discharge the patient will follow-up with PMD Dr. Epifanio Almanza.
--- NOTE | 2016-10-28 15:20 | CT ---
PROCEDURE: CT Abdomen and Pelvis without intravenous contrast HISTORY: r/o IBD/ Diverticulitis COMPARISON: None. TECHNIQUE: Without contrast.. Contrast Dose: Radiation dose: Total exam DLP = 1315 mGy-cm. This CT exam was performed using one or more of the following dose reduction techniques: Automated exposure control, adjustment of the mA and/or kV according to patient size, and/or use of iterative reconstruction technique. FINDINGS: LOWER THORAX: Unremarkable. LIVER: Fatty infiltration of the liver GALLBLADDER AND BILE DUCTS: Unremarkable. PANCREAS: Unremarkable. No gross lesion or ductal dilatation. SPLEEN: Unremarkable. ADRENALS: Unremarkable. No mass. KIDNEYS AND URETERS: Unremarkable. No hydronephrosis. No solid mass. VASCULATURE: Unremarkable. No aortic aneurysm. BOWEL: There is diverticulitis of the distal descending and proximal sigmoid colon. There is severe mural thickening. There is mesenteric stranding. There is no evidence of abscess or free air. APPENDIX: Unremarkable. Normal appendix. PERITONEUM: Unremarkable. No free fluid. No free air. LYMPH NODES: Unremarkable. No enlarged lymph nodes. BLADDER: Unremarkable. REPRODUCTIVE: Unremarkable. BONES: No acute fracture. OTHER FINDINGS: None. IMPRESSION: There is diverticulitis of the distal descending and proximal sigmoid colon. There is severe mural thickening. There is mesenteric stranding. There is no evidence of abscess or free air.
[2016-10-28 15:58] VITALS: BP 133/82; PULSE 81; RESP 18; TEMP 98.8
[2016-10-28] MEDS: Sodium Chloride 0.9% 1,000 ML IV SCH (16:58)
--- NOTE | 2016-10-28 21:10 | PN ---
ENDO FOLLOWUP NOTE ROOM: 564. SUBJECTIVE: This is a 31-year-old male with recent evaluation and diagnosis of uncontrolled type 2 insulin requiring diabetes presenting here with hypo more a hyperglycemic state and dehydration and is now being followed closely for metabolic management. His glycemic levels are fluctuant as noted and the glucose values have ranged from 250 to 262 mg per dL today as noted. LABORATORY DATA: His chemistry showed a BUN of 9, sodium 135, potassium 4.2, chloride 105, CO2 of 21, glucose 263 and creatinine 0.6. So at this time, we will modify his basal insulin and he has been given Humulin NPH, which is the more affordable conventional insulin as the patient has no financial constraints and no insurance so as mentioned we will continue the NPH, which is the more affordable and conventional insulin and increase the NPH to 20 units subq daily tonight, . Susan Marcum MD
[2016-10-28] MEDS ORDERED: Insulin Human NPH 1 UNITS/0.01 ML SC SCH ×2 (22:00)
[2016-10-29] MEDS ORDERED: Pantoprazole 40 mg EC Tab PO SCH ×2 (06:00)
[2016-10-29] MEDS: Insulin Reg-LOW-Coverage SC SCH ×2 (08:30→12:30)
[2016-10-29] MEDS: Sodium Chloride 0.9% 1,000 ML IV SCH (10:51)
--- NOTE | 2016-10-29 15:49 | CP.PCM.DIS ---
<BellabarryEverett grover - Last Filed: 10/29/16 15:54> Provider - Provider Date of Admission: 10/27/16 17:40 Attending physician: Titi Garcia MD Primary care physician: Archie Godfrey Jr, MD Consults: GI: Dr. Juan Prince Time Spent in preparation of Discharge (in minutes): 25 Hospital Course - Lab Results Lab Results: Most Recent Lab Values WBC 6.7 10^3/ul (4.5-11.0) D 10/28/16 07:00 RBC 4.75 10^6/uL (3.5-6.1) 10/28/16 07:00 Hgb 13.7 gm/dL (14.0-18.0) L 10/28/16 07:00 Hct 39.0 % (42.0-52.0) L 10/28/16 07:00 MCV 82.1 fL (80.0-105.0) 10/28/16 07:00 MCH 28.8 pg (25.0-35.0) 10/28/16 07:00 MCHC 35.1 g/dl (31.0-37.0) 10/28/16 07:00 RDW 13.2 % (11.5-14.5) 10/28/16 07:00 Plt Count 202 10^3/uL (120.0-450.0) 10/28/16 07:00 MPV 11.4 fl (7.0-11.0) H 10/28/16 07:00 Gran % 64.3 % (50.0-68.0) 10/27/16 15:40 Lymph % (Auto) 26.5 % (22.0-35.0) 10/27/16 15:40 [place] % (Auto) 6.4 % (1.0-6.0) H 10/27/16 15:40 Eos % (Auto) 2.5 % (1.5-5.0) 10/27/16 15:40 Baso % (Auto) 0.3 % (0.0-3.0) 10/27/16 15:40 Gran # 5.73 (1.4-6.5) 10/27/16 15:40 Lymph # 2.4 (1.2-3.4) 10/27/16 15:40 [place] # 0.6 (0.1-0.6) 10/27/16 15:40 Eos # 0.2 (0.0-0.7) 10/27/16 15:40 Baso # 0.03 K/mm3 (0.0-2.0) 10/27/16 15:40 PT 11.3 Seconds (9.9-11.8) 10/27/16 15:40 INR 1.05 (0.93-1.08) 10/27/16 15:40 APTT 29.5 Seconds (23.7-30.8) 10/27/16 15:40 pO2 50 mm/Hg (30-55) 10/27/16 15:40 VBG pH 7.32 (7.32-7.43) 10/27/16 15:40 VBG pCO2 45.0 (40-60) 10/27/16 15:40 VBG HCO3 23.2 mmol/l (21-28) 10/27/16 15:40 VBG O2 Sat (Calc) 86.7 % (40-65) H 10/27/16 15:40 VBG Base Excess -3.1 mmol/L (0.0-2.0) L 10/27/16 15:40 Sodium 135 mmol/L (132-148) 10/28/16 07:00 Potassium 4.0 mmol/L (3.6-5.0) 10/28/16 07:00 Chloride 105 mmol/L (98-107) 10/28/16 07:00 Carbon Dioxide 21 mmol/L (21-33) 10/28/16 07:00 Anion Gap 13 (10-20) 10/28/16 07:00 BUN 9 mg/dL (7-21) 10/28/16 07:00 Creatinine 0.6 mg/dL (0.5-1.4) 10/28/16 07:00 Est GFR ( Amer) > 60 10/28/16 07:00 Est GFR (Non-Af Amer) > 60 10/28/16 07:00 POC Glucose (mg/dL) 196 mg/dL (65-110) H 10/29/16 11:28 Random Glucose 263 mg/dL (70-110) H 10/28/16 07:00 Hemoglobin A1c 9.7 % (4.2-6.5) H 10/28/16 07:00 Calcium 7.9 mg/dL (8.4-10.5) L 10/28/16 07:00 Total Bilirubin 0.8 mg/dL (0.2-1.3) 10/27/16 15:40 AST 39 U/L (15-59) 10/27/16 15:40 ALT 84 U/L (7-56) H 10/27/16 15:40 Alkaline Phosphatase 220 U/L (38-133) H 10/27/16 15:40 Total Protein 8.3 g/dL (5.8-8.3) 10/27/16 15:40 Albumin 4.4 g/dL (3.0-4.8) 10/27/16 15:40 Globulin 3.9 gm/dL 10/27/16 15:40 Albumin/Globulin Ratio 1.1 (1.1-1.8) 10/27/16 15:40 Triglycerides 125 mg/dL (35-160) 10/28/16 07:00 Cholesterol 115 mg/dL (130-200) L 10/28/16 07:00 LDL Cholesterol Direct 79 mg/dL (0-129) 10/28/16 07:00 HDL Cholesterol 24 mg/dL (29-60) L 10/28/16 07:00 TSH 3rd Generation 0.88 mIU/mL (0.46-4.68) 10/28/16 07:00 Urine Color Yellow (YELLOW) 10/27/16 16:35 Urine Appearance Clear (CLEAR) 10/27/16 16:35 Urine pH 6.0 (4.7-8.0) 10/27/16 16:35 Ur Specific May 1.010 (1.005-1.035) 10/27/16 16:35 Urine Protein Negative mg/dL (<30 mg/dL) 10/27/16 16:35 Urine Glucose (UA) >=1000 mg/dL (NEGATIVE) 10/27/16 16:35 Urine Ketones 40 mg/dL (NEGATIVE) H 10/27/16 16:35 Urine Blood Trace-lysed (NEGATIVE) H 10/27/16 16:35 Urine Nitrate Negative (NEGATIVE) 10/27/16 16:35 Urine Bilirubin Negative (NEGATIVE) 10/27/16 16:35 Urine Urobilinogen 0.2 E.U./dL (<1 E.U./dL) 10/27/16 16:35 Ur Leukocyte Esterase Negative Shama/uL (NEGATIVE) 10/27/16 16:35 Urine RBC Negative /hpf (0-2) 10/27/16 16:35 Urine WBC 0 - 2 /hpf (0-6) 10/27/16 16:35 Ur Epithelial Cells 0 - 2 /hpf (0-5) 10/27/16 16:35 Urine Bacteria Neg (NEG) 10/27/16 16:35 - Hospital Course Hospital Course: Patient is a 31 year old male who presented to the [facility] ED for increased thirst, blurry vision and increased urination. The patient was evaluated and found to have an elevated bg and a hemoglobin A1c was found to be 9.7. The patient was admitted for observation. Endocrinology was consulted with recommendations for initiation of metformin, Amaryl, insulin, and IV hydration. Patient received diabetic education in regards to his medication and nutritional recommendations. Patient has a history of diverticulitis with history of abscess diagnosed at the age of [address] scan during his stay showed diverticulitis of the sigmoid colon. GI was consulted and recommendations of continuing his previously prescribed ciprofloxacin and outpatient colonoscopy once his ciprofloxacin course has completed. Advised the patient to follow up outpatient with PMD. - Date & Time of H&P Date of H&P: 10/27/16 Time of H&P: 18:00 Discharge Exam - Head Exam Head Exam: NORMAL INSPECTION - Eye Exam Eye Exam: EOMI, PERRL - ENT Exam ENT Exam: Mucous Membranes Moist, Normal Exam - Respiratory Exam Respiratory Exam: Clear to PA & Lateral, NORMAL BREATHING PATTERN, UNREMARKABLE - Cardiovascular Exam Cardiovascular Exam: REGULAR RHYTHM, +S1, +S2 - GI/Abdominal Exam GI & Abdominal Exam: Normal Bowel Sounds, Soft, Unremarkable - Extremities Exam Extremities exam: full ROM, normal capillary refill - Neurological Exam Neurological exam: Alert, CN II-XII Intact, Normal Gait, Oriented x3, Reflexes Normal - Psychiatric Exam Psychiatric exam: Normal Affect, Normal Mood - Skin Skin Exam: Dry, Intact, Normal Color, Warm Discharge Plan - Discharge Medications Prescriptions: Glimepiride [amaRYL] 4 mg PO ACBD #60 tab Insulin Human Isophane (NPH) [Novolin N] 20 unit SC HS #1 ml metFORMIN [glucOPHAGE] 850 mg PO BID #60 tab - Follow Up Plan Condition: FAIR Disposition: HOME/ ROUTINE Instructions: Insulin Human Regular (By injection), How to Check Your Blood Sugar (DC), Diabetes Mellitus Type 2 in Adults (DC), Basic Carbohydrate Counting (DC), Diabetic Hyperglycemia (DC) Additional Instructions: 1. Follow up with [facility] clinic or DR. Epifanio Almanza. complete [facility] paper work. Call [phone] to get appointment. 2. Follow up with GI DR. Prince for outpatient colonoscopy. 3. Diabetic diet. Referrals: Archie Godfrey Jr., MD [Primary Care Provider] - Juan Prince MD [Staff Provider] - <Titi Garcia - Last Filed: 10/29/16 16:57> Provider - Provider Date of Admission: 10/27/16 17:40 Attending physician: Titi Garcia MD Primary care physician: Archie Godfrey Jr, MD Hospital Course - Lab Results Lab Results: Most Recent Lab Values WBC 6.7 10^3/ul (4.5-11.0) D 10/28/16 07:00 RBC 4.75 10^6/uL (3.5-6.1) 10/28/16 07:00 Hgb 13.7 gm/dL (14.0-18.0) L 10/28/16 07:00 Hct 39.0 % (42.0-52.0) L 10/28/16 07:00 MCV 82.1 fL (80.0-105.0) 10/28/16 07:00 MCH 28.8 pg (25.0-35.0) 10/28/16 07:00 MCHC 35.1 g/dl (31.0-37.0) 10/28/16 07:00 RDW 13.2 % (11.5-14.5) 10/28/16 07:00 Plt Count 202 10^3/uL (120.0-450.0) 10/28/16 07:00 MPV 11.4 fl (7.0-11.0) H 10/28/16 07:00 Gran % 64.3 % (50.0-68.0) 10/27/16 15:40 Lymph % (Auto) 26.5 % (22.0-35.0) 10/27/16 15:40 [place] % (Auto) 6.4 % (1.0-6.0) H 10/27/16 15:40 Eos % (Auto) 2.5 % (1.5-5.0) 10/27/16 15:40 Baso % (Auto) 0.3 % (0.0-3.0) 10/27/16 15:40 Gran # 5.73 (1.4-6.5) 10/27/16 15:40 Lymph # 2.4 (1.2-3.4) 10/27/16 15:40 [place] # 0.6 (0.1-0.6) 10/27/16 15:40 Eos # 0.2 (0.0-0.7) 10/27/16 15:40 Baso # 0.03 K/mm3 (0.0-2.0) 10/27/16 15:40 PT 11.3 Seconds (9.9-11.8) 10/27/16 15:40 INR 1.05 (0.93-1.08) 10/27/16 15:40 APTT 29.5 Seconds (23.7-30.8) 10/27/16 15:40 pO2 50 mm/Hg (30-55) 10/27/16 15:40 VBG pH 7.32 (7.32-7.43) 10/27/16 15:40 VBG pCO2 45.0 (40-60) 10/27/16 15:40 VBG HCO3 23.2 mmol/l (21-28) 10/27/16 15:40 VBG O2 Sat (Calc) 86.7 % (40-65) H 10/27/16 15:40 VBG Base Excess -3.1 mmol/L (0.0-2.0) L 10/27/16 15:40 Sodium 135 mmol/L (132-148) 10/28/16 07:00 Potassium 4.0 mmol/L (3.6-5.0) 10/28/16 07:00 Chloride 105 mmol/L (98-107) 10/28/16 07:00 Carbon Dioxide 21 mmol/L (21-33) 10/28/16 07:00 Anion Gap 13 (10-20) 10/28/16 07:00 BUN 9 mg/dL (7-21) 10/28/16 07:00 Creatinine 0.6 mg/dL (0.5-1.4) 10/28/16 07:00 Est GFR ( Amer) > 60 10/28/16 07:00 Est GFR (Non-Af Amer) > 60 10/28/16 07:00 POC Glucose (mg/dL) 196 mg/dL (65-110) H 10/29/16 11:28 Random Glucose 263 mg/dL (70-110) H 10/28/16 07:00 Hemoglobin A1c 9.7 % (4.2-6.5) H 10/28/16 07:00 Calcium 7.9 mg/dL (8.4-10.5) L 10/28/16 07:00 Total Bilirubin 0.8 mg/dL (0.2-1.3) 10/27/16 15:40 AST 39 U/L (15-59) 10/27/16 15:40 ALT 84 U/L (7-56) H 10/27/16 15:40 Alkaline Phosphatase 220 U/L (38-133) H 10/27/16 15:40 Total Protein 8.3 g/dL (5.8-8.3) 10/27/16 15:40 Albumin 4.4 g/dL (3.0-4.8) 10/27/16 15:40 Globulin 3.9 gm/dL 10/27/16 15:40 Albumin/Globulin Ratio 1.1 (1.1-1.8) 10/27/16 15:40 Triglycerides 125 mg/dL (35-160) 10/28/16 07:00 Cholesterol 115 mg/dL (130-200) L 10/28/16 07:00 LDL Cholesterol Direct 79 mg/dL (0-129) 10/28/16 07:00 HDL Cholesterol 24 mg/dL (29-60) L 10/28/16 07:00 TSH 3rd Generation 0.88 mIU/mL (0.46-4.68) 10/28/16 07:00 Urine Color Yellow (YELLOW) 10/27/16 16:35 Urine Appearance Clear (CLEAR) 10/27/16 16:35 Urine pH 6.0 (4.7-8.0) 10/27/16 16:35 Ur Specific May 1.010 (1.005-1.035) 10/27/16 16:35 Urine Protein Negative mg/dL (<30 mg/dL) 10/27/16 16:35 Urine Glucose (UA) >=1000 mg/dL (NEGATIVE) 10/27/16 16:35 Urine Ketones 40 mg/dL (NEGATIVE) H 10/27/16 16:35 Urine Blood Trace-lysed (NEGATIVE) H 10/27/16 16:35 Urine Nitrate Negative (NEGATIVE) 10/27/16 16:35 Urine Bilirubin Negative (NEGATIVE) 10/27/16 16:35 Urine Urobilinogen 0.2 E.U./dL (<1 E.U./dL) 10/27/16 16:35 Ur Leukocyte Esterase Negative Shama/uL (NEGATIVE) 10/27/16 16:35 Urine RBC Negative /hpf (0-2) 10/27/16 16:35 Urine WBC 0 - 2 /hpf (0-6) 10/27/16 16:35 Ur Epithelial Cells 0 - 2 /hpf (0-5) 10/27/16 16:35 Urine Bacteria Neg (NEG) 10/27/16 16:35 Attending/Attestation - Attestation I have personally seen and examined this patient.: Yes I have fully participated in the care of the patient.: Yes I have reviewed all pertinent clinical information, including history, physical exam and plan: Yes Notes (Text): 10/29/16 16:56 attending note; Patient seen and examined with the resident. 1.Patient is a 11-year-old male admitted with newly diagnosed diabetes mellitus. Currently on metformin, Amaryl and NPH. endocrinology evaluation appreciated. 2. History of diverticulitis; GI evaluation appreciated. CT abdomen and pelvis showed diverticulitis and mural thickening. Needs outpatient GI workup. 3.GI prophylaxis with Protonix. 4. Dietary education/diabetic teaching in progress. Upon discharge the patient will follow-up with PMD Dr. Epifanio Almanza. diagnosis; New onset diabetes Diverticulitis Obesity
--- NOTE | 2016-10-29 19:16 | PN ---
10/29/201619:15:26SUBJECTIVE: This is a 31-year-old male with recent evaluation on diagnosis of uncontrolled type 2 insulin-requiring diabetes, now being followed closely for metabolic management. His glycemic levels are fluctuating, but much improvement at this time and the latest glucose levels have ranged from 92 to 124 and 119 mg/dL. He was actually 74 early this morning as noted, the latest chemistry showed the BUN of 9, sodium 135, potassium 4.0, chloride 105, CO2 21, glucose 263, creatinine 0.6. His A1c is 9.7%, this is elevated and indicative of suboptimal metabolic control his diabetic condition is even prior to this admission, so this time we will actually modify and lower the NPH to 14 units subQ at bedtime daily to start tonight. We will titrate incrementally as indicated to optimize metabolic control. We will continue the oral hyperglycemic drug therapy given in combination with Amaryl given as 4 mg b.i.d. and metformin at 850 mg b.i.d as ordered. We would recommend the same dosing regimen as mentioned for eventual discharge. We will sign out on the diabetic care this time. Susan Marcum MD
[2016-10-29] MEDS ORDERED: Insulin Human NPH 1 UNITS/0.01 ML SC SCH (22:00)
[2016-10-30 20:49] LABS: BETA-HYDROXYBUTYRIC ACID 240 mcg/mL
== END 2016-10-29 18:24 | disposition home or self-care (01) | DRG 638 ==
LOC: ED 15:17 → ERH 17:40 → 5RNO 18:56
PROVIDERS: ADMIT Internal Medicine; ATTEND Internal Medicine
DX: E11.65 Type 2 diabetes mellitus with hyperglycemia (principal); K57.32 Diverticulitis of large intestine without perforation or abscess without bleeding; E87.1 Hypo-osmolality and hyponatremia; E86.0 Dehydration; E66.9 Obesity, unspecified; Z68.34 Body mass index [BMI] 34.0-34.9, adult; K52.9 Noninfective gastroenteritis and colitis, unspecified; R63.1 Polydipsia; Z79.4 Long term (current) use of insulin; Z87.891 Personal history of nicotine dependence; R40.2412 Glasgow coma scale score 13-15, at arrival to emergency department